=== PATIENT | female | born 1985 | race Hispanic/Latino ===

== ENCOUNTER 2018-03-17 21:09 | Emergency (ER) | payer OTHER ==
[~2018-03-17] VITALS: Ht 160 cm; Wt 139.5 kg
[2018-03-17] MEDS ORDERED: KETOROLAC TROMETHAMINE 60 MG/2 ML VIAL IM ONE (21:45)
[2018-03-17 23:18] VITALS: BP 160/88
[2018-03-17] MEDS ORDERED: CYCLOBENZAPRINE HCL 10 MG TAB PO ONE (23:30)
[2018-03-17] MEDS ORDERED: HYDROCODONE/APAP 5MG-325MG TAB PO ONE (23:30)
== END 2018-03-18 | disposition home or self-care (01) ==
LOC: FSED 21:09
DX: M54.2 Cervicalgia (principal); S16.1XXA Strain of muscle, fascia and tendon at neck level, initial encounter; S33.5XXA Sprain of ligaments of lumbar spine, initial encounter; V43.52XA Car driver injured in collision with other type car in traffic accident, initial encounter; Y92.488 Other paved roadways as the place of occurrence of the external cause
CPT/HCPCS: 72126; 72128; 81025; 96372; 99283; J1885

== ENCOUNTER 2021-06-05 21:20 | Emergency (ER) | payer OTHER ==
[~2021-06-05] VITALS: Ht 154.9 cm; Wt 140.6 kg
[2021-06-05] MEDS ORDERED: ACETAMINOPHEN 325 MG TAB ONE (22:55)
[2021-06-05] MEDS: ACETAMINOPHEN 325 MG TAB PO ONE (23:00)
[2021-06-06] MEDS: CASIRIVIMAB/IMDEVIMAB 10 ML in SODIUM CHLORIDE 0.9% 100 ML IV ONE (00:15)
== END 2021-06-06 04:39 | disposition home or self-care (01) ==
LOC: ER 22:24
DX: U07.1 COVID-19 (principal); R05 Cough; R07.9 Chest pain, unspecified; R06.02 Shortness of breath; I10 Essential (primary) hypertension; E78.5 Hyperlipidemia, unspecified; E11.69 Type 2 diabetes mellitus with other specified complication
CPT/HCPCS: 99283; J7050